=== PATIENT | male | born 1945 | race Caucasian/White ===

== ENCOUNTER 2018-07-27 08:16 | Inpatient (IN) ==
--- NOTE | 2018-07-20 11:49 | Anesthesiology Consultation ---
Date of Service July 20, 2018 Assessment & Plan (1) Encounter for pre-operative examination: Per cardiology 07/20/18: "Moderate Risk" for surgery. Hold ASA x 7 days, hold coumadin x 5 days, no need to bridge with Lovenox. Hyperkalemia on pre-op labs. Case d/w Dr. Ontiveros. Pt to stop Lisinopril from now until surgery, and will re-check K+ AM DOS. Patient made aware, and also instructed to avoid K+ rich foods from now until surgery. RECHECK POTASSIUM AM DOS CHECK PT/INR/PTT STAT AM DOS Chart Review Chart Review: Acceptable Risk for Surgery and Patient seen in Pre Admission Testing Teaching & Discussion Instructed NPO after midnight before surgery, except medications with 15 cc of water. Medication instructions provided according to the PAT guidelines. History Surgery Operation Date: 07/27/18 09:50 Proposed Procedures p Robotic Assisted Partial Cystectomy with Lymph Node Dissection - Otis Pedroza MD Height/Weight Height: 6 ft 1 in Weight: 126.2 kg Allergies Allergy/AdvReac Type Severity Reaction Status Date / Time No Known Allergies Allergy Verified 07/27/18 08:41 Medications Home Medications Medication Instructions Recorded Confirmed Last Taken alfuzosin 10 mg PO HS 07/19/18 07/27/18 07/26/18 22:00 aspirin [Aspirin Low Dose] 81 mg PO BID 07/19/18 07/27/18 07/20/18 22:00 furosemide [Lasix] 20 mg PO DAILY PRN 07/19/18 07/19/18 Unknown lisinopril 2.5 mg PO QAM 07/19/18 07/27/18 07/25/18 05:30 metoprolol tartrate 25 mg PO BID 07/19/18 07/27/18 07/27/18 06:00 nitroglycerin 1 dose SUBLINGUAL UD PRN 07/19/18 07/19/18 Unknown pantoprazole 20 mg PO QAM 07/19/18 07/27/18 07/27/18 06:00 simvastatin 20 mg PO HS 07/19/18 07/27/18 07/26/18 22:00 warfarin 7.5 mg PO HS 07/19/18 07/27/18 07/21/18 22:00 Active Medications Generic Name Dose Route Start Last Admin Trade Name Freq PRN Reason Stop Dose Admin Heparin Sodium (Porcine) 5,000 units 07/27/18 06:00 07/27/18 08:58 Heparin Sodium (Porcine) SQ 07/27/18 18:00 5,000 units TODAY@0600 DEB Administration Lactated Ringer's 1,000 mls @ 15 mls/hr 07/27/18 06:00 07/27/18 08:58 Lr IV 07/28/18 05:59 15 mls/hr .Q24H DEB Administration Past Medical History Medical History Atrial fibrillation FOLLOWS DR. MOSLEY Q 6 MONTHS, ON COUMADIN. BPH (benign prostatic hyperplasia) Cancer BLADDER CANCER Chronic obstructive pulmonary disease GERD (gastroesophageal reflux disease) Hearing deficit NO HEARING AIDES Hyperlipidemia Hypertension Myocardial Infarction 2011 On anticoagulant therapy Osteoarthritis Sleep apnea NON-COMPLIANT CAD (coronary artery disease) S/P TX, cardiac cath with 1 stent 2011 Obesity Past Surgical History Surgical History History of appendectomy History of biopsy of bladder History of cardiac cath [facility] 2011 History of cataract surgery BILATERAL History of colonoscopy History of cystoscopy WITH BLADDER TUMOR REMOVAL History of heart artery stent 2011, UNSURE OF TYPE OF STENT History of herniorrhaphy INGUINAL LEFT X2 Past Anesthesia History No Hx of Anesthesia Complications and No Family Hx of Anesthesia Complications History of PONV No Motion Sickness Screening History of Motion Sickness: No Social History Smoking Status: Current every day smoker tobacco type: cigarettes Smoking cigarettes per day: 10-15 Do You Dip or Chew Tobacco: No Hx Alcohol Use: Yes (46 YEARS SOBER) Hx Substance Use: No substance use type: does not use Exercise / Class Metabolic Activity II 4-5 Yardwork/Stairs/Walk up hill (Denies CP with stairs, occ mild SOB with stairs but does full flight daily) Review of Systems Pt denies any recent chest pain, shortness of breath, palpitations, cough, fever or URI. Physical Exam Vital Signs Last Vital Signs Temp 36.8 C 07/27/18 08:45 Pulse 80 07/27/18 08:45 Resp 18 07/27/18 08:45 BP 149/85 H 07/27/18 08:45 Pulse Ox 97 07/27/18 08:45 BP: 114/65 P: 76bpm SPO2: 98% RA T: 98.2 F R: 16 ENMT Mouth: + dental bridge (upper front 4 teeth) and + dental restorations (few caps); no chipped teeth and no loose teeth Thyromental Distance: < 3.5 Finger Breadths (2.5) Mallampati Class: I Neck + short neck and + thick neck; neck extension not limited Respiratory normal respiratory effort Auscultation: lungs clear to auscultation bilaterally Cardiovascular Rate/Rhythm: regular rate; + abnormal rhythm (irreg irreg) Heart Sounds: no murmur Vessels: no carotid bruit Testing Electrocardiogram Date: 07/20/18 Findings: + AFIB @ (77) Low voltage QRS. Chest X-Ray Date: 07/20/18 Findings: + NAD Echocardiogram Date: 07/12/18 EF: 60% Normal EF. Mitral filling indicates grade 1 diastolic dysfunction. Normal right ventricular size with normal function. Severely dilated left atrium. Mildly dilated right atrium. Trileaflet aortic valve. There is moderate aortic regurgitation. The aortic valve is thickened. There is moderate to severe mitral regurgitation. The mitral valve is thickened. Normal tricuspid valve. There is moderate tricuspid regurgitation. Normal PA pressure. Normal pulmonic valve. There is physiologic pulmonic regurgitation. The aortic root is enlarged. The ascending aorta is enlarged. Stress Test Date: 07/12/18 Type: nuclear Lexiscan stress EKG was without changes diagnostic for myocardial ischemia. Nuclear images show diaphragmatic attenuation, mild. Good quality study. Normal gated MPI wall motion and EF. There is a moderate in size, mild to moderate intensity, fixed MPI defect of the inferolateral myocardium. This suggests inferolateral myocardial infarction or may be secondary to diaphragmatic attenuation. There is no evidence of myocardial ischemia. Study is moderately abnormal. It is similar to prior study dated 08/14/2015, except prior ischemia appears now as infarct and/or attenuation artifact. Laboratory Results 07/20/18 12:15 07/27/18 08:37 Blood Type A Positive 07/20/18 12:15 Antibody Screen NEGATIVE 07/20/18 12:15 PT 11.8 Seconds (9.0-12.0) 07/27/18 08:37 INR 1.2 (0.9-1.1) H 07/27/18 08:37 APTT 22.5 Seconds (21.0-31.0) 07/27/18 08:37 Urine Color Yellow 07/20/18 12:15 Urine Appearance Clear (Clear) 07/20/18 12:15 Urine pH 6.5 (4.5-7.5) 07/20/18 12:15 Ur Specific [place] 1.018 (1.000-1.030) 07/20/18 12:15 Urine Protein Negative (Negative) 07/20/18 12:15 Urine Glucose (UA) Negative (Negative) 07/20/18 12:15 Urine Ketones Negative (Negative) 07/20/18 12:15 Urine Nitrite Negative (Negative) 07/20/18 12:15 Ur Leukocyte Esterase Negative (Negative) 07/20/18 12:15 07/20/18 12:15 Urine Culture - Final Urine,Clean Catch No growth - less than 1,000 colonies/mL.
--- NOTE | 2018-07-20 11:52 | PAT Medication Instructions ---
Medication Instructions Date of Service July 20, 2018 Home Medications alfuzosin 10 mg PO HS aspirin [Aspirin Low Dose] 81 mg PO BID furosemide [Lasix] 20 mg PO DAILY PRN lisinopril 2.5 mg PO QAM metoprolol tartrate 25 mg PO BID nitroglycerin 1 dose SUBLINGUAL UD PRN pantoprazole 20 mg PO QAM simvastatin 20 mg PO HS warfarin 7.5 mg PO HS ASK your prescriber and surgeon aspirin [Aspirin Low Dose] 81 mg PO BID warfarin 7.5 mg PO HS DO NOT take the morning of surgery furosemide [Lasix] 20 mg PO DAILY PRN lisinopril 2.5 mg PO QAM Take morning of surgery With a small sip of water, OTHERWISE NOTHING TO EAT OR DRINK AFTER MIDNIGHT: metoprolol tartrate 25 mg PO BID nitroglycerin 1 dose SUBLINGUAL UD PRN (if needed) pantoprazole 20 mg PO QAM Take evening before surgery alfuzosin 10 mg PO HS furosemide [Lasix] 20 mg PO DAILY PRN (if needed) metoprolol tartrate 25 mg PO BID nitroglycerin 1 dose SUBLINGUAL UD PRN (if needed) simvastatin 20 mg PO HS Other Notes If you have any questions please call us at [phone] or [phone] or [phone] or [phone]
--- NOTE | 2018-07-20 12:39 | XRay Report ---
XR chest Pre-admission PA/Lat CLINICAL HISTORY: Preoperative chest COMPARISON STUDY: No previous studies for comparison. FINDINGS: The heart is the upper limits of normal in size. There is no failure. There is no focal pul monary consolidation. Left basilar opacities are felt to represent a combination of atelectasis and c ardiophrenic angle fat pad. There is minor blunting of the left posterior costophrenic angle. This ma y be chronic.[ IMPRESSION: No active disease in the chest. Electronically signed by: Willard Castillo M.D. 07/20/2018 12:38 PM
[2018-07-20 13:31] LABS: Basophils # (auto) 0.02 K/uL (0-0.2); Basophils % (auto) 0.3 %; Eosinophils # (auto) 0.11 K/uL (0-0.5); Eosinophils % (auto) 1.5 %; Hemoglobin 13.9 g/dL (14.0-18.0); Immature Granulocytes # (auto) 0.01 K/uL (0.00-0.02); Immature Granulocytes % (auto) 0.1 %; Lymphocytes # (auto) 2.22 K/uL (1.2-3.4); Lymphocytes % (auto) 30.2 %; Mean Corpuscular Hgb Conc 33.1 g/dL (32-36); Mean Corpuscular Volume 93.8 fL (80-100); Mean Platelet Volume 11.3 fL (7.4-10.4); Monocytes # (auto) 0.85 K/uL (0.11-0.59); Monocytes % (auto) 11.6 %; Neutrophils # (auto) 4.14 K/uL (1.4-6.5); Neutrophils % (auto) 56.3 %; Platelet Count 140 K/uL (130-400); RDW Coefficient of Variation 14.1 % (11.5-14.5); RDW Standard Deviation 48.7 fL (36.4-46.3); Red Blood Count 4.48 M/uL (4.7-6.1); White Blood Count 7.35 K/uL (4.8-10.8)
[2018-07-20 13:32] LABS: Appearance Urine Clear (Clear); Bilirubin Urine Negative (Negative); Blood Urine Negative (Negative); Color Urine Yellow; Glucose Urine UA Negative (Negative); Ketones Urine Negative (Negative); Leukocyte Esterase Urine Negative (Negative); Nitrite Urine Negative (Negative); Protein Urine Negative (Negative); Specific Gravity Urine 1.018 (1.000-1.030); Urobilinogen Urine Negative (Negative); pH Urine 6.5 (4.5-7.5)
[2018-07-20 14:01] LABS: BUN Creatinine Ratio 14.1 (10-20); Calcium 9.1 mg/dl (8.5-10.1); Creatinine Clr Calc Pharmacy 91.1 ml/min; Est GFR (African American) 84.7; Est GFR (Non-African American) 73.1; Potassium 5.5 mmol/L (3.5-5.1)
[~2018-07-27 08:16] MED LIST: CEFAZOLIN 3000MG 65 ML IV SCH; HEPARIN IV BOLUS 5,000 UNITS in SYRINGE 0 ML IV ONE; HEPARIN SOD 5,000 UNIT/0.5 ML VIAL SQ SCH; LR 15ML/HR IV SCH
[2018-07-27 09:06] LABS: INR 1.2 (0.9-1.1); Partial Thromboplastin Ratio 0.8; Partial Thromboplastin Time 22.5 Seconds (21.0-31.0); Prothrombin Time 11.8 Seconds (9.0-12.0)
[2018-07-27] MEDS ORDERED: LIDOCAINE HCL 2% 2 ML VIAL/AMP(20MG/ML) INFIL ONE (09:23)
[2018-07-27] MEDS ORDERED: NEOSTIGMINE METHYLSULFATE 5 MG/5 ML SYR ONE (09:23)
[2018-07-27] MEDS ORDERED: ONDANSETRON INJ 2 MG/ML 2 ML VIAL ONE (09:23)
[2018-07-27] MEDS ORDERED: fentaNYL citrate 100 MCG/2 ML VIAL ONE ×3 (09:23→13:50)
[2018-07-27] MEDS ORDERED: ROCURONIUM BROMIDE 10 MG/ML 5 ML VIAL ONE ×3 (09:23→12:58)
[2018-07-27] MEDS ORDERED: PROPOFOL IV EMULSION 10 MG/ML 20 ML VIAL IV ONE (09:23)
[2018-07-27] MEDS ORDERED: MIDAZOLAM HCL 1 MG/ML 2ML VIAL ONE (09:23)
[2018-07-27] MEDS ORDERED: DEXAMETHASONE SOD INJ 4 MG/ML VIAL ONE (09:23)
[2018-07-27] MEDS ORDERED: GLYCOPYRROLATE 0.2 MG/ML VIAL ONE ×2 (09:23→14:12)
[2018-07-27] MEDS ORDERED: ETOMIDATE 2 MG/ML 20 ML VIAL IV ONE (09:24)
[2018-07-27] MEDS ORDERED: ESMOLOL HCL INJ 10 MG/ML 10ML VIAL IV ONE ×2 (09:24→12:58)
[2018-07-27] MEDS ORDERED: NITROGLYCERIN/D5W 100 MCG/ML BTL ONE (09:24)
[2018-07-27] MEDS ORDERED: ePHEDrine sulfate 50 MG/ML AMP IV PRN (10:24)
[2018-07-27] MEDS ORDERED: ATROPINE SULFATE 0.1 MG/ML 10ML SYR IV PRN (10:24)
[2018-07-27] MEDS ORDERED: fentaNYL citrate 100 MCG/2 ML VIAL IV PRN (10:24)
[2018-07-27] MEDS ORDERED: HYDROmorphone INJ 1 MG/ML SYRINGE IV PRN (10:24)
[2018-07-27] MEDS ORDERED: ONDANSETRON INJ 2 MG/ML 2 ML VIAL IV PRN (10:24)
--- NOTE | 2018-07-27 10:51 | XRay Report ---
XR chest 1V portable CLINICAL HISTORY: Preoperative - incr. SOB, Hx of sev. mitral regurg COMPARISON STUDY: 07/20/2018 FINDINGS: Moderate cardiac enlargement. Increased prominence of pulmonary vasculature compared to the prior study. Diaphragms are smooth. Minimal atelectasis left base. IMPRESSION: 1. Cardiomegaly. 2. Pulmonary vascular congestion. The above report was generated using voice recognition software. It may contain grammatical, syntax or spelling errors. Electronically signed by: Mark Camejo M.D. 07/27/2018 10:50 AM
[2018-07-27] MEDS ORDERED: FUROSEMIDE 40 MG/4 ML VIAL IV ONE (10:52)
[2018-07-27] MEDS ORDERED: FUROSEMIDE 20 MG in SYRINGE 0 ML IV ONE (10:55)
--- NOTE | 2018-07-27 11:22 | History & Physical Bridge Note ---
Date of Service July 27, 2018 History & Physical Bridge Note I have examined the patient, reviewed the History & Physical and in the interval since the performance of the History & Physical I have noted the following changes of clinical significance: no changes noted
--- NOTE | 2018-07-27 11:26 | Procedure Note ---
Procedure Note Date of Service July 27, 2018 Radial arterial line placed in ASU2 at 11:15 in preparation for Davinci cystectomy and LN dissection with Dr. Pedroza. Left wrist prepped with chlorhexidine and draped with sterile towels. Site infiltrated with 1 cc of 1% lidocaine. 20 G angiocath placed under sterile technique utilizing sterile gloves, surgical hats and masks. Catheter threaded using seldinger technique with return of pulsatile, bright red blood. Site covered with occlusive dressing and taped in place. Waveform consistent with correct arterial placement. After placement, fingers of procedural hand had normal perfusion. Patient tolerated procedure well without complications.
[2018-07-27] MEDS ORDERED: BUPIVACAINE 0.5 % 5 MG/1 ML MPF 30ML VIAL ONE (11:39)
[2018-07-27] MEDS ORDERED: ePHEDrine sulfate 50 MG/ML SYR ONE (12:30)
[2018-07-27] MEDS ORDERED: PHENYLEPHRINE 100MCG/ML 5ML SYR ONE (12:30)
[2018-07-27] MEDS ORDERED: ePHEDrine sulfate 50 MG/ML AMP ONE (12:35)
--- NOTE | 2018-07-27 15:07 | Operative Report ---
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 dome of bladder and urachus (with overlying fat) 2. Left pelvic lymph nodes 3. Right pelvic lymph nodes Description of Procedure Patient was identified in the preoperative holding area, appropriate informed consents reviewed and completed and the patient was transported to the operating suite. Upon arrival he received appropriate preoperative antibiotics in the form of Ancef. Adequate general anesthesia was achieved and he was placed in dorsal lithotomy position where sterilely prepped and draped in standard fashion. To begin the case, I passed a flexible cystoscope per urethra inspected the bladder. Of note, he had significant hematuria. I was forced to irrigate the bladder free of clot before being able to better evaluate the dome. Consistent with my in office cystoscopy performed last week, he has an ulcerated lesion with calcification at the dome of the bladder. This appears to also have induration surrounding it for 2-3 cm on any side. Following my cystoscopic evaluation, I removed the cystoscope and placed a Muro. We then insufflated the abdomen with passing a Veress needle per umbilicus and inflating to 12 mmHg. I entered the abdomen with a 12 mm Visiport and 10 mm 0 degree lens. Inspection revealed no substantial adhesive disease or other abnormality. I placed additional ports in standard fashion as would be used for robotic prostatectomy with the exception of exclusion of the 5 mm right upper quadrant port. We then placed the patient in steep Trendelenburg position. Initial evaluation revealed a visible mass at the root of the urachus/dome of the bladder. This appears to be at least 6 cm across, there also is a white/ulcerated area visible through the perivesicular fat. This is highly concerning for full-thickness/T3 disease. Following my inspection, I controlled the urachus just inferior to the umbilicus with bipolar electrocautery. I then controlled the medial umbilical ligaments bilaterally again utilizing bipolar electrocautery. I incised the peritoneum lateral to each of these ligaments and carried my dissection down to the midportion of the bladder. Anteriorly I dissected under the pubic arch exposing the anterior surface of the bladder. After feeling that I had adequately mobilized, I made an anterior cystotomy in the bladder and the location I felt was safe in regard to the cancer. Inspection through the cystotomy revealed healthy appearing mucosal surface adjacent to my incision, and I expanded my incision further working gradually around the urachal cancer. After circumferentially surrounding this, I transected through the perivesicular fat remove the specimen en bloc including the urachus, perivesicular fat and tumor itself. This was collected in a large Endo Catch bag and passed into the upper abdomen. Inspection of the remaining aspects of the bladder revealed healthy- appearing mucosa without gross abnormality. I mobilized the lateral aspect slightly to facilitate easier closure. I then closed in 2 layers utilizing 3-0 V lock suture as the mucosal layer followed by 2-0 Vlock imbricating suture to reapproximate the detrusor muscle and perivesicular fat. We tested the anastomosis and saw no leak. I then performed a bilateral lymph node dissection by further mobilizing the bladder and identifying the external iliac vessels. I dissected the packet just inferior to the iliac vein, caring this is far laterally as the circumflex vein and distally as far as the obturator nerve. Care was used to preserve the nerve and avoid electrocautery use adjacent to it. The entire packet was excised en bloc, it was marked with a white Weck clip and left in the pelvis. And performed the same dissection on the left, again identifying the external iliac vein and artery and performing a dissection inferior to the vein, laterally extending as far as a circumflex vein and distally as far as the obturator nerve. This lymph node packet was again controlled with monopolar electrocautery and was not marked with a clip. The 2 carol packets were collected in an Endo Catch bag and placed into the upper abdomen. Inspected for hemostasis which was excellent and guided a MAURICIO drain in lateral most robotic port. The robot was undocked, the supraumbilical incision was expanded to approximately 5 cm in both specimen bags were extracted through before closing with a 0 PDS suture. Right lateral assistant track coach port was closed with a 0 Vicryl in [id number] fashion followed by Monocryl to close the skin. All other incisions were closed with Monocryl and dressed with Dermabond. All incisions were infiltrated with half percent Marcaine prior to closure. The drain was sutured in place with a 3-0 nylon suture. Patient was substernally extubated and taken to the PACU in stable condition. Marly Moss assisted throughout the surgery from incision to closure I attest to the content of the Intraoperative Record and any orders documented therein. Any exceptions are noted below.
[2018-07-27 15:09] LABS: Basophils # (auto) 0.03 K/uL (0-0.2); Basophils % (auto) 0.3 %; Eosinophils # (auto) 0.04 K/uL (0-0.5); Eosinophils % (auto) 0.4 %; Hematocrit (blood only) 40.6 % (42-52); Hemoglobin 13.5 g/dL (14.0-18.0); Immature Granulocytes # (auto) 0.03 K/uL (0.00-0.02); Immature Granulocytes % (auto) 0.3 %; Lymphocytes # (auto) 1.11 K/uL (1.2-3.4); Lymphocytes % (auto) 12.3 %; Mean Corpuscular Volume 94.6 fL (80-100); Monocytes # (auto) 0.29 K/uL (0.11-0.59); Monocytes % (auto) 3.2 %; Neutrophils % (auto) 83.5 %; Platelet Count 122 K/uL (130-400); RDW Standard Deviation 48.2 fL (36.4-46.3); Red Blood Count 4.29 M/uL (4.7-6.1)
[2018-07-27 15:25] LABS: BUN Creatinine Ratio 10.4 (10-20); Calcium 8.6 mg/dl (8.5-10.1); Creatinine Clr Calc Pharmacy 89.2 ml/min; Est GFR (African American) 82.7; Est GFR (Non-African American) 71.4
--- NOTE | 2018-07-27 15:33 | Anesthesiology Progress Note ---
Date of Service July 27, 2018 Anesthesia Post Procedure Vital Signs Vital Signs: Temp Pulse Pulse Resp BP BP Pulse Ox 07/27/18 15:15 84 14 111/71 96 07/27/18 15:05 90 12 114/73 94 07/27/18 14:55 92 H 18 119/76 96 07/27/18 10:48 36.0 C L 97 H 17 130/73 96 07/27/18 08:45 36.8 C 80 18 149/85 H 97 Pain Intensity Lower Abdomen: Pain Intensity: 0 Notes Mental Status: alert / awake / arousable and participated in evaluation Patient Amnestic to Procedure: Yes Nausea / Vomiting: adequately controlled Pain: improving with treatment Airway Patency, RR, SpO2: stable & adequate BP & HR: stable & adequate Hydration State: stable & adequate Anesthetic Complications: no major complications apparent and Pt Satisfied with anesthetic care Notes: Patient doing well in PACU. Lungs clear and patient breathing comfortably with appropriate oxygen saturation levels. Primary team plans to monitor patient overnight on telemetry and with cont pulse oximetry.
[2018-07-27 15:46] LABS: Mean Corpuscular Hgb Conc 33.3 g/dL (32-36)
[2018-07-27] MEDS ORDERED: MoRPHine SULFATE 4 MG/ML 1 ML CARP\\VIAL IV PRN (16:17)
[2018-07-27] MEDS ORDERED: NITROGLYCERIN SL 0.4 MG/TAB TAB SL PRN (16:17)
[2018-07-27] MEDS ORDERED: MoRPHine SULFATE 2 MG/ML CARP IV PRN (16:17)
[2018-07-27] MEDS ORDERED: BELLADONNA/OPIUM SUPP 60 MG SUPP PR PRN (16:17)
[2018-07-27] MEDS ORDERED: ACETAMINOPHEN 325 MG TAB PO PRN (16:17)
[2018-07-27] MEDS: CEFAZOLIN 2000MG 2,000 MG/15 ML SYR IV SCH (17:36)
[2018-07-27] MEDS: LACTATED RINGER'S 1,000 ML IV SCH (17:36)
[2018-07-27] MEDS: OXYCODONE HCL IR 5 MG TAB (IMMEDIATE RELEASE) PO PRN (17:36)
[2018-07-27] MEDS: METOPROLOL TARTRATE 25 MG TAB PO SCH (21:29)
[2018-07-27] MEDS: HEPARIN SOD 5,000 UNIT/0.5 ML VIAL SQ SCH (21:29)
[2018-07-27] MEDS: SIMVASTATIN 20 MG TAB PO SCH (21:29)
[2018-07-27] MEDS: ALFUZOSIN HCL 10 MG TAB PO SCH (21:29)
[2018-07-27] MEDS: OXYBUTYNIN CHLORIDE 5 MG TAB PO SCH (21:29)
[2018-07-28] MEDS: LACTATED RINGER'S 1,000 ML IV SCH (00:45)
[2018-07-28] MEDS: CEFAZOLIN 2000MG 2,000 MG/15 ML SYR IV SCH (02:27)
[2018-07-28 07:04] LABS: Eosinophils # (auto) 0.01 K/uL (0-0.5); Eosinophils % (auto) 0.1 %; Hematocrit (blood only) 39.2 % (42-52); Hemoglobin 13.3 g/dL (14.0-18.0); Immature Granulocytes # (auto) 0.03 K/uL (0.00-0.02); Immature Granulocytes % (auto) 0.3 %; Lymphocytes % (auto) 11.9 %; Mean Corpuscular Hgb Conc 33.9 g/dL (32-36); Mean Corpuscular Volume 93.6 fL (80-100); Mean Platelet Volume 11.3 fL (7.4-10.4); Neutrophils # (auto) 8.39 K/uL (1.4-6.5); Neutrophils % (auto) 76.7 %; Platelet Count 122 K/uL (130-400); Red Blood Count 4.19 M/uL (4.7-6.1); White Blood Count 10.93 K/uL (4.8-10.8)
[2018-07-28 07:22] LABS: BUN Creatinine Ratio 12.7 (10-20); Creatinine Clr Calc Pharmacy 95.4 ml/min; Est GFR (Non-African American) 77.7; Potassium 4.3 mmol/L (3.5-5.1)
[2018-07-28] MEDS: PANTOprazole 40 MG TAB PO SCH (08:02)
[2018-07-28] MEDS: LISINOPRIL 2.5 MG TAB PO SCH (08:02)
[2018-07-28] MEDS: METOPROLOL TARTRATE 25 MG TAB PO SCH ×2 (08:02→19:52)
[2018-07-28] MEDS: OXYBUTYNIN CHLORIDE 5 MG TAB PO SCH ×2 (08:02→19:52)
[2018-07-28] MEDS: HEPARIN SOD 5,000 UNIT/0.5 ML VIAL SQ SCH ×3 (08:02→22:12)
--- NOTE | 2018-07-28 10:21 | Urology Progress Note ---
Date of Service July 28, 2018 Assessment & Plan (1) Adenocarcinoma of urachus: POD #1 s/p Robotic Assisted Laparoscopic Partial Cystectomy with Bilateral pelvic LND, cystoscopy. Pt evaluated with Dr. Pedroza today. Doing well, progressing as expected. No major issues overnight. Labs and I&Os reviewed. MAURICIO draining mild amount serosang as expected. Baxter draining clear. Encouraged to ambulate and use of IS. Advance diet to regular, soft. d/c IVFs. Okay to restart coumadin tomorrow. Started on ditropan for bladder spasms. Plan to discharge home tomorrow, or later today if patient feels ready. Will go home with baxter catheter. Expected clinical course reviewed. Discharge instructions reviewed, pt verbalizes understanding. Will continue to monitor closely. Please see additional comments per my attending as indicated. Subjective Review of Systems All systems reviewed & are unremarkable except as noted in HPI & below 73yo M POD #1 s/p Robotic Assisted Laparoscopic Partial Cystectomy wi th bilat pelvic LND, cystoscopy Progressing as expected today. Sitting up in bed, tolerating clears. Denies n/v/f/c. Uneventful evening, pain controlled with PO options. Physical Exam Vital Signs (Past 24 Hours): Last Vital Signs Temp 37.2 C 07/28/18 03:10 Pulse 91 H 07/28/18 08:00 Resp 19 07/28/18 03:10 BP 134/80 07/28/18 03:10 Pulse Ox 96 07/28/18 03:10 Physical Exam: A&Ox3 RRR -on 2LNC abd soft incisions C/D/I baxter draining clear yellow MAURICIO draining serosang Results & Data Laboratory Results Laboratory Results - last 48 hr 07/27/18 07/27/18 07/27/18 08:37 08:37 15:01 WBC 9.00 RBC 4.29 L Hgb 13.5 L Hct 40.6 L MCV 94.6 MCH 31.5 MCHC 33.3 RDW Std Deviation 48.2 H RDW Coeff of Darleen 14.0 Plt Count 122 L MPV 11.0 H Immature Gran % (Auto) 0.3 Neut % (Auto) 83.5 Lymph % (Auto) 12.3 Starke % (Auto) 3.2 Eos % (Auto) 0.4 Baso % (Auto) 0.3 Immature Gran # (Auto) 0.03 H Neut # (Auto) 7.50 H Lymph # (Auto) 1.11 L Starke # (Auto) 0.29 Eos # (Auto) 0.04 Baso # (Auto) 0.03 PT 11.8 INR 1.2 H APTT 22.5 PTT Ratio 0.8 Sodium Potassium 4.3 Chloride Carbon Dioxide Anion Gap BUN Creatinine Est Cr Clr Drug Dosing Est GFR ( Amer) Est GFR (Non-Af Amer) BUN/Creatinine Ratio Glucose Calcium Hepatitis C Ab Screen 07/27/18 07/28/18 07/28/18 15:01 06:27 06:27 WBC 10.93 H RBC 4.19 L Hgb 13.3 L Hct 39.2 L MCV 93.6 MCH 31.7 MCHC 33.9 RDW Std Deviation 48.0 H RDW Coeff of Darleen 14.0 Plt Count 122 L MPV 11.3 H Immature Gran % (Auto) 0.3 Neut % (Auto) 76.7 Lymph % (Auto) 11.9 Starke % (Auto) 11.0 Eos % (Auto) 0.1 Baso % (Auto) 0.0 Immature Gran # (Auto) 0.03 H Neut # (Auto) 8.39 H Lymph # (Auto) 1.30 Starke # (Auto) 1.20 H Eos # (Auto) 0.01 Baso # (Auto) 0.00 PT INR APTT PTT Ratio Sodium 142 142 Potassium 4.0 4.3 Chloride 111 H 110 H Carbon Dioxide 25 28 Anion Gap 5.0 5.0 BUN 11 12 Creatinine 1.04 0.97 Est Cr Clr Drug Dosing 89.2 95.4 Est GFR ( Amer) 82.7 90.0 Est GFR (Non-Af Amer) 71.4 77.7 BUN/Creatinine Ratio 10.4 12.7 Glucose 133 H 94 Calcium 8.6 9.0 Hepatitis C Ab Screen 07/28/18 06:27 WBC RBC Hgb Hct MCV MCH MCHC RDW Std Deviation RDW Coeff of Darleen Plt Count MPV Immature Gran % (Auto) Neut % (Auto) Lymph % (Auto) Starke % (Auto) Eos % (Auto) Baso % (Auto) Immature Gran # (Auto) Neut # (Auto) Lymph # (Auto) Starke # (Auto) Eos # (Auto) Baso # (Auto) PT INR APTT PTT Ratio Sodium Potassium Chloride Carbon Dioxide Anion Gap BUN Creatinine Est Cr Clr Drug Dosing Est GFR ( Amer) Est GFR (Non-Af Amer) BUN/Creatinine Ratio Glucose Calcium Hepatitis C Ab Screen Neg
--- NOTE | 2018-07-28 11:28 | Anesthesiology Progress Note ---
Date of Service July 28, 2018 Anesthesia Post Procedure Vital Signs Vital Signs: Temp Pulse Pulse Pulse Resp BP Pulse Ox 07/28/18 11:00 36.6 C 88 22 117/67 93 07/28/18 08:00 91 H 07/28/18 03:10 37.2 C 116 H 19 134/80 96 07/27/18 23:24 89 07/27/18 23:22 37.0 C 110 H 19 132/80 98 07/27/18 20:00 36.4 C L 94 H 19 127/84 98 07/27/18 18:47 36.4 C L 83 20 129/77 98 07/27/18 17:47 36.7 C 86 18 141/78 H 98 07/27/18 16:47 36.4 C L 76 20 129/77 98 07/27/18 16:17 36.6 C 74 14 129/79 96 07/27/18 15:55 69 15 122/69 95 07/27/18 15:45 36.2 C L 75 19 141/90 H 92 07/27/18 15:35 74 13 123/76 95 07/27/18 15:25 79 15 125/68 94 07/27/18 15:15 84 14 111/71 96 07/27/18 15:05 90 12 114/73 94 07/27/18 14:55 92 H 18 119/76 96 Pulse Ox 07/28/18 11:00 07/28/18 08:00 07/28/18 03:10 07/27/18 23:24 07/27/18 23:22 07/27/18 20:00 07/27/18 18:47 07/27/18 17:47 07/27/18 16:47 07/27/18 16:17 96 07/27/18 15:55 07/27/18 15:45 07/27/18 15:35 07/27/18 15:25 07/27/18 15:15 07/27/18 15:05 07/27/18 14:55 Pain Intensity Lower Abdomen: Pain Intensity: 2 Notes Mental Status: alert / awake / arousable and participated in evaluation Patient Amnestic to Procedure: Yes Nausea / Vomiting: see Notes below Pain: adequately controlled Airway Patency, RR, SpO2: stable & adequate BP & HR: stable & adequate Hydration State: stable & adequate Anesthetic Complications: no major complications apparent and Pt Satisfied with anesthetic care
[2018-07-28] MEDS: OXYCODONE HCL IR 5 MG TAB (IMMEDIATE RELEASE) PO PRN (19:10)
[2018-07-28] MEDS: SIMVASTATIN 20 MG TAB PO SCH (19:52)
[2018-07-28] MEDS: ALFUZOSIN HCL 10 MG TAB PO SCH (19:52)
[2018-07-29] MEDS: HEPARIN SOD 5,000 UNIT/0.5 ML VIAL SQ SCH (06:04)
[2018-07-29 06:17] LABS: Basophils # (auto) 0.02 K/uL (0-0.2); Basophils % (auto) 0.2 %; Eosinophils # (auto) 0.06 K/uL (0-0.5); Eosinophils % (auto) 0.6 %; Hematocrit (blood only) 39.4 % (42-52); Immature Granulocytes # (auto) 0.02 K/uL (0.00-0.02); Immature Granulocytes % (auto) 0.2 %; Lymphocytes # (auto) 1.51 K/uL (1.2-3.4); Lymphocytes % (auto) 14.7 %; Mean Corpuscular Volume 94.5 fL (80-100); Mean Platelet Volume 11.2 fL (7.4-10.4); Monocytes # (auto) 1.22 K/uL (0.11-0.59); Monocytes % (auto) 11.9 %; Neutrophils # (auto) 7.42 K/uL (1.4-6.5); Neutrophils % (auto) 72.4 %; Platelet Count 121 K/uL (130-400); RDW Coefficient of Variation 13.9 % (11.5-14.5); RDW Standard Deviation 47.5 fL (36.4-46.3); Red Blood Count 4.17 M/uL (4.7-6.1); White Blood Count 10.25 K/uL (4.8-10.8)
[2018-07-29 06:46] LABS: BUN Creatinine Ratio 14.8 (10-20); Calcium 8.9 mg/dl (8.5-10.1); Creatinine Clr Calc Pharmacy 106.8 ml/min; Est GFR (African American) 99.9; Est GFR (Non-African American) 86.2
[2018-07-29] MEDS: METOPROLOL TARTRATE 25 MG TAB PO SCH (08:03)
[2018-07-29] MEDS: PANTOprazole 40 MG TAB PO SCH (08:04)
[2018-07-29] MEDS: OXYBUTYNIN CHLORIDE 5 MG TAB PO SCH (08:04)
[2018-07-29] MEDS: LISINOPRIL 2.5 MG TAB PO SCH (08:04)
--- NOTE | 2018-07-29 09:00 | Urology Progress Note ---
Date of Service July 29, 2018 Assessment & Plan (1) Adenocarcinoma of urachus: d/c drain - ambulate - d/c home with baxter in place - cover with nitrofurantoin x14d Subjective doing very well - moderate pain, but tolerable - no hematuria - limited drain output Review of Systems Review of Systems: All systems reviewed & are unremarkable except as noted in HPI & below Physical Exam Physical Exam: incisions appropriate - drain mostly serous - urine clear Results & Data Vital Signs (Past 12 Hours) Vital Signs Temp Pulse Resp BP Pulse Ox 07/29/18 06:59 37.0 C 75 16 131/83 91 07/29/18 03:30 37.0 C 93 H 18 104/55 L 91 07/29/18 00:08 37.0 C 94 H 18 125/71 91
--- NOTE | 2018-08-09 13:04 | Discharge Summary ---
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 He now presents for definitive treatment in the form of robotic partial cystectomy Principal Diagnosis Urachal adenocarcinoma Discharge Data Allergies Allergy/AdvReac Type Severity Reaction Status Date / Time No Known Allergies Allergy Verified 07/27/18 08:41 Procedures Performed Operation Date: 07/27/18 09:50 Actual Procedures p Robotic Assisted Laparoscopic Partial Cystectomy with Bilateral Pelvic Lymph Node Dissection, - Otis Pedroza MD s Cystoscopy - Otis Pedroza MD Hospital Course (1) Adenocarcinoma of urachus: Patient was admitted to the hospital for robotic assisted partial cystectomydetails of that procedure are as dictated previously in the operative report. In summary, he tolerated his procedure well and was sent a telemetry floor in stable condition post procedure. He continued to progress appropriately over the next 48 hours prior to discharge home. His drain was removed before leaving the hospital, his catheter remained in when he left. He was hemodynamically stable and his lab evaluations were all appropriate. Total Time Total Time Spent Total Time Spent (In Minutes): 30 Total Time Includes: Examination of the Patient, Discharge Planning and Medication Reconciliation Discharge Plan Discharge Items Patient Disposition: Home - Self-Care Reason For Visit: Malignant Neoplasm of Bladder Discharge Diagnosis: malignant neoplasm of bladder Condition: Good Discharge Goals: Improve function, Learn about illness, Prevent disease and Therapeutic intervention Activity: As commented below Activity Comment: walking and stairs in your home are okay Lifting: No more than 25 pounds Bathing: Keep incision dry Bathing Comment: Okay to shower, no tub baths. Please do not pick at surgical g lue. Sexual Activity: Wait until after follow-up appointment Exercise/Sports: Rest today and Wait until after follow-up appointment Driving/Machine Use: Resume 1 day after discharge Driving/Machine Use Comment: Please do not drive while taking prescription pain medication. Non-emergency contact: Urologist Call non-emergency contact if: you have any medication questions, your pain is not controlled, your pain is concerning for you, your wound has increased redness, your wound has increased drainage and your wound pain has increased Follow-up/Referrals: Otis Pedroza MD [Physician] - Estelita Lopez PA-C [Primary Care Provider] - Diet: Regular Addtl Provider Instructions: Please take all medications as prescribed and keep all follow-ups as scheduled. Please call our office at [phone] with any questions, concerns or need to reschedule appointments for any reason. We are happy to assist you Upcoming appointments: * Cystogram (x-ray to test for patency of bladder with catheter in place) 08/06/18 at 7:45AM at [facility], please report to Main entrance at 7:15AM, No prep required. * Nursing Visit for catheter removal: 08/06/18 at 9AM * Dr. Pedroza Visit: 08/11/18 at 8:30AM You may restart your coumadin on 07/29. Please call coumadin clinic/ordering provider to make them aware, to plan next INR check. Oxybutynin is a new medicine we have prescribed for you to help with the bladder spasms/urgency/frequency of urination. Please be aware this can cause dry mouth/constipation. Chewing gum/sugar free candies and stool softeners can help. If the side effects are very severe, okay to stop and make us aware. We can try different medications within the same drug family, or this can be discussed at follow-up with Dr. Pedroza. Nitrofurantoin is an antibiotic Dr. Pedroza would like you to take every 12 hours for 2 weeks to prevent infection. Activity: We recommend having someone with you for the first few days after surgery to help care for you. For the first 2 weeks after surgery, we would like you to get up and walk around your house. However, we recommend limit physical activity that would increase your heart rate. This will allow your body to rest and heal. Take naps if you feel tired. Don't lift anything heavier than 25 pounds, mow the law or ride a bicycle until your follow-up appointment. Please avoid long car rides. Home Care: Unless directed otherwise, drink 6 to 8 glasses of water a day (enough to keep your urine light colored). This will also help keep a healthy flow of urine. We recommend using a stool softener for the first two weeks to avoid constipation. Muro Catheter care: Keep the catheter well secured with either a leg back or leg strap with large bag. Empty your bag when it's about half full. You may notice some blood in the bag. This is normal after surgery and while the catheter is in place. Use mild soap (such as Dove or Dial) and water to wash the catheter and the head of your penis daily, or more frequently if needed. Return to your normal diet, we encourage good protein intake to promote healing. You may shower as normal. Please avoid tub baths or soaking until catheter removed and incisions well healed. Wearing sweat pants while you have the catheter is recommended, they will be more comfortable. Follow-up Your follow up appointments for having your cystogram and catheter removed, and follow up with your physician should already be scheduled. If you have any questions regarding this, please contact our office. Your final pathology report will be discussed at your physician follow-up appointment. Call [facility] at [phone] right away if you have any of the following: Chest pain or trouble breathing (call [phone] or go to the hospital) Fever of 101F or higher, uncontrolled vomiting Heavy bleeding, clots, or bright red blood from the catheter Catheter that falls out or stops draining Foul-smelling discharge from your catheter Redness, swelling, warmth, or increased pain at your incision site Drainage, pus, or bleeding from your incision Prescriptions: New oxybutynin chloride 5 mg tablet 5 mg PO BID Qty: 60 RF: 0 acetaminophen-codeine [Tylenol-Codeine #3] 300-30 mg tablet 1 tab PO TID PRN (Reason: pain) Qty: 14 RF: 0 docusate sodium [Colace] 100 mg capsule 100 mg PO BID Qty: 60 RF: 0 nitrofurantoin macrocrystal 100 mg capsule 100 mg PO BID 14 Days Qty: 28 RF: 0 Continued warfarin 7.5 mg Tablet 7.5 mg PO HS RF: 0 aspirin [Aspirin Low Dose] 81 mg Tablet,Delayed Release (Dr/Ec) 81 mg PO BID RF: 0 pantoprazole 20 mg Tablet,Delayed Release (Dr/Ec) 20 mg PO QAM RF: 0 simvastatin 20 mg Tablet 20 mg PO HS RF: 0 nitroglycerin 0.4 mg Tablet, Sublingual 1 dose sublingual UD PRN (Reason: Chest Pain) RF: 0 furosemide [Lasix] 20 mg Tablet 20 mg PO DAILY PRN (Reason: Edema) RF: 0 lisinopril 2.5 mg Tablet 2.5 mg PO QAM RF: 0 alfuzosin 10 mg Tablet Extended Release 24 Hr 10 mg PO HS RF: 0 metoprolol tartrate 25 mg Tablet 25 mg PO BID RF: 0 Stand-Alone Forms: [facility]/Other Patient Handouts: Catheter Bag Urinary Empty Clean, Catheter Indwelling Urinary Dc, Leg Bag Care Dc Discharge Orders: Discharge Order (Routine); Ordered 07/29/18 Ordered By: Marly Moss Admission Data Admit Date/Time: 07/27/18 14:45 Attending Provider: Otis Pedroza Admit Provider: Otis Pedroza Primary Care Provider: Estelita Lopez Service: Telemetry Medical Other Interventions: Discharge Summary Assessment (RN) Last Done: 07/29/18 12:24 DC Date/Time DO NOT enter until pt leaves facility: 07/29/18 13:00
== END 2018-07-29 13:00 | disposition home or self-care (01) | DRG 670 ==
LOC: ASU 08:16 → 2S 14:45